=== PATIENT | male | born 1965 | race African-American/Black ===

== ENCOUNTER 2017-03-02 23:19 | Emergency (ER) | payer MEDICAID, OTHER ==
[~2017-03-02] VITALS: Ht 180.3 cm; Wt 93.0 kg
[2017-03-02 23:27] VITALS: BP 138/86
[2017-03-02] MEDS ORDERED: PRILOSEC OTC20 MG ORAL (23:29)
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
[2017-03-03] MEDS ORDERED: IBUPROFEN600 MG ORAL (00:56)
[2017-03-03 01:06] VITALS: BP 138/86
--- NOTE | 2017-03-03 15:06 | Diagnostic Imaging Report ---
Indication: PAIN Technique: 3 views of the left knee Comparison: None Findings:No acute fractures. No dislocations. Joint spaces are preserved. No suprapatellar effusion Impression:Negative
--- NOTE | 2017-03-03 15:21 | Diagnostic Imaging Report ---
Indications: PAIN Technique: Two views of the right forearm Comparison: None Findings: No acute fractures. No dislocations. Joint spaces are preserved Impression: Negative This agrees with the preliminary interpretation provided by the emergency room physician
--- NOTE | 2017-03-03 15:23 | Diagnostic Imaging Report ---
Indication: PAIN Technique: 3 views of the right knee Comparison: None Findings:No acute fractures. No dislocations. There is minimal degenerative joint space narrowing medially as well as a small osteophyte. Impression:No acute process This agrees with the preliminary interpretation provided by the emergency room physician
== END 2017-03-03 01:08 | disposition home or self-care (01) ==
LOC: EMR 23:58
DX: S80.02XA Contusion of left knee, initial encounter (principal); S80.01XA Contusion of right knee, initial encounter; S50.11XA Contusion of right forearm, initial encounter; W19.XXXA Unspecified fall, initial encounter; Y93.55 Activity, bike riding; Y99.9 Unspecified external cause status; M79.631 Pain in right forearm; Z88.0 Allergy status to penicillin; I10 Essential (primary) hypertension; K21.9 Gastro-esophageal reflux disease without esophagitis
CPT/HCPCS: 99283